=== PATIENT | male | born 1975 | race Caucasian/White ===

== ENCOUNTER → 2023-06-20 14:08 | Outpatient (BNVA) | payer MEDICAID, SELFPAY | PROVIDERS: Visit Provider Nurse Practitioner Family | DX: R50.9 Fever, unspecified (principal); J06.9 Acute upper respiratory infection, unspecified | CPT/HCPCS: 87400; 87426 ==

== ENCOUNTER 2023-11-07 12:49 | Emergency (ER) | payer MEDICAID, SELFPAY ==
[2023-11-07 13:27] VITALS: BP 143/92; PULSE 105; RESP 16; TEMP 36.6; O2SAT 97; BMI 32.3
--- NOTE | 2023-11-07 14:26 | XRR_ITS ---
PROCEDURE INFORMATION: Exam: XR Left Foot Exam date and time: 11/07/2023 2:32 PM Age: 47 years old Clinical indication: Condition or disease; Other: Diabetic ulcer lt foot TECHNIQUE: Imaging protocol: Radiologic exam of the left foot. Views: 3 or more views. COMPARISON: No relevant prior studies available. FINDINGS: Bones/joints: No evidence of acute fracture or subluxation. Tarsometatarsal alignment is maintained. Soft tissues: Soft tissue ulceration of the plantar aspect of the forefoot. No gross soft tissue gas. XR/XR foot LT min 3V* [id number] IMPRESSION: 1. Soft tissue ulceration without evidence of acute osseous erosion, fracture or subluxation. If there is ongoing clinical concern for infection, consider correlation with MRI.
--- NOTE | 2023-11-07 14:26 | ED_ITS ---
HPI - Extremity Problem 2 General: Chief complaint: Extremity Injury, Lower Stated complaint: Left foot diabetic wound Time Seen by Provider: 11/07/23 13:58 Source: patient Mode of arrival: ambulatory Limitations: no limitations History of Present Illness: Patient is a 47-year-old male presents to ED today along with his for evaluation of an ulcer to the plantar aspect of his left foot. Patient tells me he has had this wound quite a while (several months). States sometimes it will drain. Has picked at it multiple time. He states he is a diabetic but does not ever check his blood sugars. Complaint: other (ulcer to L foot) Onset (ago): month(s) Location: left and lower extremity Radiation: none Relieving factors: nothing Exacerbating factors: walking Associated symptoms: Reports no associated symptoms; Deny fever(s) Review of Systems 2 Const: Denies: fever(s) Musc: Reports: extremity pain; Denies: extremity swelling Skin/Breast: Reports: other (ulcer to plantar L foot) Physical Exam 2 Const: COMMON NORMALS: no acute distress, patient oriented x3, no limitations, alert and well nourished Extremity: Feet w/LR Ind Bottom: 1. large callus/plantar ulcer with full skin layer breakdown down to muscle layer; muscle layer does appear non-affected; no bone involvement; no drainage; no redness; no odor Neuro: COMMON NORMALS: patient oriented x3 SENSORIUM/ORIENTATION: Yes alert Skin: NARRATIVE SKIN EXAM: L plantar ulcer Course 2 Vital Signs: Vital signs: Vital Signs Temperature 97.8 F 11/07/23 15:00 Pulse Rate 98 11/07/23 15:00 Respiratory Rate 16 11/07/23 15:00 Blood Pressure 141/94 11/07/23 15:00 Pulse Oximetry 98 11/07/23 15:00 Oxygen Delivery Me thod Room Air 11/07/23 13:27 MDM - Extremity (Nontraumatic) Medical Decision Making Patient has a chronic non-infected left plantar diabetic ulcer. XR showing no bony involvement. Ultimately he needs debridement and chronic wound care. Will refer him to podiatry. Medical Records I reviewed the patient's medical records. XR interpretation done by ED provider, pending radiology final review Discharge Plan Discharge Patient Disposition: Home Clinical Impression: Plantar ulcer of left foot Qualifiers: Non-pressure ulcer stage: with fat layer exposed Qualified Code(s): L97.522 - Non-pressure chronic ulcer of other part of left foot with fat layer exposed Condition: Stable Discharge Orders: Discharge ED (Routine); Ordered 11/07/23 Ordered By: Janette De Patient Instructions: Foot Care for People with Diabetes (DC), Foot Ulcers in a Person with Diabetes (ED) Activity Restrictions/Additional Instructions: Continue to keep ulcer clean and dressed. Offload weight is much as possible. I will have case management set you up to see podiatry for further evaluation for long-term management to get this wound healed. Coding Level of Care Code ED [employer] for [employer]
[2023-11-07 15:00] VITALS: BP 141/94; PULSE 98; RESP 16; TEMP 36.6; O2SAT 98
--- NOTE | 2023-11-07 17:24 | DCPLANNER ---
messaged podiatry for er f/u
== END 2023-11-07 15:01 | disposition home or self-care (01) ==
PROVIDERS: Emergency Provider Physician Assistant
DX: L97.522 Non-pressure chronic ulcer of other part of left foot with fat layer exposed (principal)
CPT/HCPCS: 73630; 99283

== ENCOUNTER → 2023-12-23 10:42 | Outpatient (BNVA) | payer MEDICAID, SELFPAY | PROVIDERS: Visit Provider Podiatrist Foot & Ankle Surgery | DX: E11.621 Type 2 diabetes mellitus with foot ulcer (principal); L97.512 Non-pressure chronic ulcer of other part of right foot with fat layer exposed; L97.522 Non-pressure chronic ulcer of other part of left foot with fat layer exposed; E11.42 Type 2 diabetes mellitus with diabetic polyneuropathy; G62.9 Polyneuropathy, unspecified | CPT/HCPCS: 99203 ==

== ENCOUNTER → 2023-12-28 13:05 | Outpatient (BNVA) | payer MEDICAID, SELFPAY | PROVIDERS: Visit Provider Thoracic Surgery (Cardiothoracic Vascular Surgery) | DX: E11.52 Type 2 diabetes mellitus with diabetic peripheral angiopathy with gangrene (principal); E11.621 Type 2 diabetes mellitus with foot ulcer; L97.522 Non-pressure chronic ulcer of other part of left foot with fat layer exposed; L97.511 Non-pressure chronic ulcer of other part of right foot limited to breakdown of skin | CPT/HCPCS: 97597; 99213 ==

== ENCOUNTER → 2024-01-04 14:22 | Outpatient (BNVA) | payer MEDICAID, SELFPAY | PROVIDERS: Visit Provider Thoracic Surgery (Cardiothoracic Vascular Surgery) | DX: E11.52 Type 2 diabetes mellitus with diabetic peripheral angiopathy with gangrene (principal); E11.621 Type 2 diabetes mellitus with foot ulcer; L97.522 Non-pressure chronic ulcer of other part of left foot with fat layer exposed; L97.511 Non-pressure chronic ulcer of other part of right foot limited to breakdown of skin | CPT/HCPCS: 97597 ==

== ENCOUNTER → 2024-01-10 13:42 | Outpatient (BNVA) | payer MEDICAID, SELFPAY | PROVIDERS: Visit Provider Thoracic Surgery (Cardiothoracic Vascular Surgery) | DX: E11.52 Type 2 diabetes mellitus with diabetic peripheral angiopathy with gangrene (principal); E11.621 Type 2 diabetes mellitus with foot ulcer; L97.511 Non-pressure chronic ulcer of other part of right foot limited to breakdown of skin; L97.521 Non-pressure chronic ulcer of other part of left foot limited to breakdown of skin | CPT/HCPCS: 97597; A6248 ==